=== PATIENT | male | born 1970 | race Two or more races ===

== ENCOUNTER 2018-04-05 10:05 | Inpatient (IN) | payer OTHER ==
[~2018-04-05] VITALS: Ht 165.1 cm; Wt 125.0 kg
--- NOTE | 2018-04-05 10:16 | NUR ---
CHARBEL ROTHMAN NOTIFIED OF PT BP [id number]/141
--- NOTE | 2018-04-05 10:29 | NUR ---
PT TO ROOM FROM LOBBY AT THIS TIME.
[2018-04-05] MEDS ORDERED: ONDANSETRON ODT 4 MG PO ONE (10:30)
[2018-04-05] MEDS ORDERED: ONDANSETRON ODT 4 MG ONE (10:32)
--- NOTE | 2018-04-05 10:37 | NUR ---
MD IS AT THE BEDSIDE TO ASSESS
[2018-04-05 11:01] LABS: BASOPHILS # (AUTO) 0.05 x10^3/uL (0-0.1); BASOPHILS % (AUTO) 1 % (0-1); EOSINOPHILS # (AUTO) 0.06 x10^3/uL (0-0.4); EOSINOPHILS % (AUTO) 1 % (1-7); LYMPHOCYTES # (AUTO) 1.85 x10^3/uL (1-3.4); LYMPHOCYTES % (AUTO) 26 % (22-44); MD NO; MEAN CORPUSCULAR HEMOGLOBIN 30.1 pg (27.5-34.5); MEAN CORPUSCULAR HGB CONC 32.9 g/dL (33.2-36.2); MEAN CORPUSCULAR VOLUME 91.5 fL (81-97); MEAN PLATELET VOLUME 9.7 fL (7.4-10.4); MONOCYTES # (AUTO) 0.42 x10^3/uL (0.2-0.8); MONOCYTES % (AUTO) 6 % (2-9); NEUTROPHILS # (AUTO) 4.68 x10^3/uL (1.8-6.8); NEUTROPHILS % (AUTO) 66 % (42-75); PLATELET COUNT 197 x10^3/uL (130-400); RED BLOOD COUNT 5.73 x10^6/uL (4.38-5.82); RED CELL DISTRIBUTION WIDTH 16.2 % (9.4-14.8)
--- NOTE | 2018-04-05 11:03 | NUR ---
pt ambulated mto the restroom with a steady gait
--- NOTE | 2018-04-05 11:07 | NUR ---
pt to ultrasound w tech
[2018-04-05 11:10] LABS: ANION GAP 6 mmol/L (5-15); CALCIUM 8.6 mg/dL (8.5-10.1); CHLORIDE 110 mmol/L (98-107)
[2018-04-05 11:16] LABS: ALANINE AMINOTRANSFERASE 80 U/L (12-78); ALKALINE PHOSPHATASE 77 U/L (45-117); BILIRUBIN,TOTAL 1.4 mg/dL (0.2-1.0); CREATININE 1.48 mg/dL (0.7-1.3); TOTAL PROTEIN 6.9 g/dL (6.4-8.2); TROPONIN I < 0.015 ng/mL (0.000-0.045)
[2018-04-05 11:24] LABS: MICROSCOPIC INDICATED
[2018-04-05 11:43] LABS: CULTURE INDICATED? NO
--- NOTE | 2018-04-05 12:51 | NUR ---
PT TO CT W TECH
--- NOTE | 2018-04-05 13:03 | NUR ---
PT REPORT FROM JAROD SOLIS. PT CARE TO BE ASSUMED.
--- NOTE | 2018-04-05 13:03 | NUR ---
afshin (rn) is assuming careof this pt at this time. sbar report was exchanged at the bedside.
[2018-04-05] MEDS ORDERED: OMNIPAQUE 350 MG/ML, 150 ML BOTTLE ONE (13:11)
--- NOTE | 2018-04-05 13:30 | NUR ---
PT RESTING QUIETLY ON BED. PT'S FRIEND, MIKE LEWIS TRANSLATING FOR PT.
--- NOTE | 2018-04-05 14:40 | NUR ---
RESTING QUIETLY ON BED, WATCHING TV. FRIEND IN ROOM.
[2018-04-05] MEDS ORDERED: FUROSEMIDE 40 MG/4 ML IVPush ONE (15:00)
[2018-04-05] MEDS ORDERED: NITROGLYCERIN OINT 2%, 1GM TP ONE ×2 (15:00→16:42)
[2018-04-05] MEDS ORDERED: ONDANSETRON 2MG/ML, 2ML IVPush PRN (15:30)
[2018-04-05] MEDS ORDERED: DOCUSATE 100 MG CAPSULE PO PRN (15:30)
[2018-04-05] MEDS ORDERED: ONDANSETRON ODT 4 MG PO PRN (15:30)
[2018-04-05 15:39] LABS: FREE T4 (FREE THYROXINE) 1.09 ng/dL (0.76-1.46); THYROID STIMULATING HORMONE 2.08 mIU/L (0.358-3.740)
[2018-04-05 15:44] LABS: HEMOGLOBIN A1C 5.7 % (4.2-6.3)
[2018-04-05] MEDS ORDERED: HEPARIN 5,000 UNITS/ML, 1ML ONE (16:42)
[2018-04-05] MEDS ORDERED: FUROSEMIDE 40 MG/4 ML ONE (16:42)
--- NOTE | 2018-04-05 16:50 | NUR ---
PT SITTING ON CHAIR IN ED ROOM, FULLY DRESSED. PT NOTIFIED OF PENDING ADMISSION. BLAISE ELECTRICAL MANAGER IN ROOM FOR TRANSLATION ASSISTANCE. PT INFORMED OF ORDERED MEDS; UNDERSTANDING VERBALIZED.
[2018-04-05] MEDS: HEPARIN 5,000 UNITS/ML, 1ML SQ SCH (17:08)
[2018-04-05] MEDS ORDERED: ANTIBIOTIC (17:10)
[2018-04-05] MEDS ORDERED: RANITIDINE (17:10)
[2018-04-05] MEDS ORDERED: HTN (17:10)
--- NOTE | 2018-04-05 17:25 | NUR ---
HOSPITALIST BS FOR EXAM, W/ [employer]ER ASSIST
[2018-04-05] MEDS ORDERED: FUROSEMIDE 40 MG/4 ML IV ONE (17:30)
[2018-04-05 17:35] LABS: INTERNATIONAL NORMALIZED RATIO 1.17 (0.93-1.1); PROTHROMBIN TIME 12.3 Seconds (9.6-11.5)
--- NOTE | 2018-04-05 17:39 | NUR ---
CALLED FLOOR TO GIVE REPORT TO JAROD GORDON. RN NOT AVAILABLE. ON HOLD FOR 10 MINS; ENDED CALL.
--- NOTE | 2018-04-05 18:01 | NUR ---
PT REPORT TO JAROD GORDON FOR ROOM 508. TWO ORDERS IN [facility] FOR HYDRALAZINE (PO NOW VS IV PRN) WILL ATTEMPT TO CLARIFY ORDER PRIOR TO SENDING PT TO FLOOR.
[2018-04-05] MEDS ORDERED: hydrALAzine 20 MG/ML, 1ML ONE (18:06)
[2018-04-05] MEDS: hydrALAzine 20 MG/ML, 1ML IVPush PRN (18:09)
--- NOTE | 2018-04-05 18:10 | NUR ---
CONSULTED DR FOSTER RE HYDRALAZINE ORDER. VO TO GIVE IV DOSE. DOSE GIVEN PER [facility] ORDER.
[2018-04-05 20:12] LABS: AMPHETAMINE SCREEN, URINE Negative (Negative); BARBITURATE SCREEN, URINE Negative (Negative); BENZODIAZEPINE SCREEN, URINE Negative (Negative); CANNABINOID SCREEN, URINE Negative (Negative); COCAINE SCREEN, URINE Negative (Negative); METHADONE SCREEN, URINE Negative (Negative); OPIATE SCREEN, URINE Negative (Negative)
[2018-04-05 20:40] VITALS: BP 119/78
[2018-04-05] MEDS: LISINOPRIL 20 MG TABLET PO SCH ×2 (21:00→21:57)
[2018-04-05 21:35] VITALS: BP 152/89
[2018-04-05] MEDS ORDERED: LOSA100T14 PO (22:04)
[2018-04-05] MEDS ORDERED: SULF1TAB23 PO (22:04)
[2018-04-05] MEDS ORDERED: ATEN100T PO (22:04)
[2018-04-06] MEDS: HEPARIN 5,000 UNITS/ML, 1ML SQ SCH ×3 (00:27→17:46)
[2018-04-06 00:30] VITALS: BP 139/84
[2018-04-06 04:59] LABS: BASOPHILS # (AUTO) 0.05 x10^3/uL (0-0.1); BASOPHILS % (AUTO) 1 % (0-1); EOSINOPHILS % (AUTO) 1 % (1-7); LYMPHOCYTES # (AUTO) 1.74 x10^3/uL (1-3.4); LYMPHOCYTES % (AUTO) 23 % (22-44); MD NO; MEAN CORPUSCULAR HEMOGLOBIN 30.9 pg (27.5-34.5); MEAN CORPUSCULAR HGB CONC 33.3 g/dL (33.2-36.2); MEAN CORPUSCULAR VOLUME 92.7 fL (81-97); MEAN PLATELET VOLUME 9.6 fL (7.4-10.4); MONOCYTES # (AUTO) 0.48 x10^3/uL (0.2-0.8); MONOCYTES % (AUTO) 6 % (2-9); NEUTROPHILS # (AUTO) 5.17 x10^3/uL (1.8-6.8); NEUTROPHILS % (AUTO) 69 % (42-75); PLATELET COUNT 183 x10^3/uL (130-400); RED BLOOD COUNT 5.48 x10^6/uL (4.38-5.82); RED CELL DISTRIBUTION WIDTH 17.3 % (9.4-14.8)
[2018-04-06 05:04] LABS: CHLORIDE 106 mmol/L (98-107)
[2018-04-06 05:11] LABS: ALANINE AMINOTRANSFERASE 71 U/L (12-78); ALBUMIN 3.1 g/dL (3.4-5.0); ALKALINE PHOSPHATASE 74 U/L (45-117); ANION GAP 6 mmol/L (5-15); BILIRUBIN,TOTAL 0.8 mg/dL (0.2-1.0); CALCIUM 8.6 mg/dL (8.5-10.1); CHOL/HDL RATIO 4.4; CHOLESTEROL, TOTAL 164 mg/dL (140-239); CREATININE 1.42 mg/dL (0.7-1.3); HDL CHOL % 23 % (26-37); HDL CHOLESTEROL (DIRECT) 37 mg/dL (40-60); LDL CHOLESTEROL,CALCULATED 106 mg/dL (54-169); LDL/HDL RATIO 2.9 (0.5-3.0); TRIGLYCERIDES 103 mg/dL (50-200); VLDL CHOLESTEROL 21 mg/dL (0-25)
[2018-04-06 07:40] VITALS: BP 146/78
[2018-04-06] MEDS: LISINOPRIL 20 MG TABLET PO SCH ×2 (08:30→20:22)
[2018-04-06] MEDS ORDERED: MAGNESIUM SULFATE PMX 2GM/50ML 50 ML IV ONE (12:30)
[2018-04-06 13:56] VITALS: BP_SYST 135; BP_SYST 155; BP_DIAS 89
[2018-04-06 15:06] VITALS: BP 138/83
[2018-04-06] MEDS ORDERED: ALBUTEROL/IPRATROPIUM 2.5MG/0.5MG, 3 ML NPPB PRN (18:30)
[2018-04-06 18:35] VITALS: BP 158/87
[2018-04-07 00:33] VITALS: BP_SYST 164; BP_SYST 171; BP_DIAS 101; BP_DIAS 113
[2018-04-07] MEDS: hydrALAzine 20 MG/ML, 1ML IVPush PRN (01:15)
[2018-04-07] MEDS: HEPARIN 5,000 UNITS/ML, 1ML SQ SCH ×3 (01:15→16:48)
[2018-04-07 02:11] VITALS: BP 154/90
[2018-04-07 06:37] VITALS: BP 169/99
[2018-04-07 08:30] LABS: ANION GAP 7 mmol/L (5-15); CALCIUM 8.7 mg/dL (8.5-10.1); CHLORIDE 108 mmol/L (98-107); CREATININE 1.01 mg/dL (0.7-1.3)
[2018-04-07] MEDS: LISINOPRIL 20 MG TABLET PO SCH ×2 (09:05→19:57)
[2018-04-07] MEDS: CHLORTHALIDONE 25 MG TABLET PO SCH (09:05)
[2018-04-07] MEDS: CARVEDILOL 6.25 MG TABLET PO SCH ×2 (11:03→19:58)
[2018-04-07] MEDS ORDERED: OMNIPAQUE 350 MG/ML, 100ML BOTTLE ONE (11:15)
[2018-04-07 12:09] VITALS: BP 161/102
[2018-04-07] MEDS ORDERED: FUROSEMIDE 40 MG/4 ML IV STA (12:40)
[2018-04-07 19:04] VITALS: BP 174/100
[2018-04-07 21:19] VITALS: BP 181/125
[2018-04-07] MEDS ORDERED: ENALAPRILAT 1.25 MG/ML, 2ML IV ONE (22:00)
[2018-04-08] MEDS ORDERED: LABETALOL 5MG/ML, 20ML IVPush PRN (00:15)
[2018-04-08 00:25] VITALS: BP 159/95
[2018-04-08] MEDS ORDERED: FUROSEMIDE 20 MG/2 ML IV ONE ×2 (01:00→12:00)
[2018-04-08] MEDS: HEPARIN 5,000 UNITS/ML, 1ML SQ SCH ×3 (01:25→17:00)
[2018-04-08 05:38] VITALS: BP 163/94
[2018-04-08] MEDS: CARVEDILOL 6.25 MG TABLET PO SCH (05:42)
[2018-04-08 08:12] VITALS: BP 159/118
[2018-04-08] MEDS: CHLORTHALIDONE 25 MG TABLET PO SCH (08:56)
[2018-04-08] MEDS: LISINOPRIL 20 MG TABLET PO SCH (08:57)
[2018-04-08] MEDS ORDERED: DOXAZOSIN 2MG TABLET PO SCH (09:00)
[2018-04-08 11:54] VITALS: BP 128/84
[2018-04-08] MEDS ORDERED: FUROSEMIDE 20 MG/2 ML ONE (11:59)
[2018-04-08 13:34] VITALS: BP 117/76
[2018-04-08 14:26] LABS: O2 FLOW ROOM AIR L/min
[2018-04-08 17:17] LABS: O2 FLOW ROOM AIR L/min
[2018-04-08] MEDS ORDERED: DOXA2TAB9 PO (17:32)
[2018-04-08] MEDS ORDERED: DOCU-131 PO (17:32)
[2018-04-08] MEDS ORDERED: HYDR-3343 PO (17:32)
[2018-04-08] MEDS ORDERED: CARV12.543 PO (17:32)
[2018-04-08] MEDS ORDERED: CHLO25TA PO (17:32)
[2018-04-08] MEDS ORDERED: LISI-170 PO (17:32)
[2018-04-08] MEDS ORDERED: CARVEDILOL 12.5 MG TABLET PO SCH (18:00)
[2018-04-08] MEDS ORDERED: SIMETHICONE 80 MG CHEW TAB PO PRN (18:30)
== END 2018-04-08 18:56 | disposition home or self-care (01) | DRG 291 ==
LOC: ED 14:09 → EDIP 14:54 → 5SO 18:40
PROVIDERS: ADMIT Internal Medicine; ATTEND Internal Medicine
DX: I11.0 Hypertensive heart disease with heart failure (principal); N17.0 Acute kidney failure with tubular necrosis; R18.8 Other ascites; N39.0 Urinary tract infection, site not specified; Z68.42 Body mass index [BMI] 45.0-49.9, adult; I42.6 Alcoholic cardiomyopathy; E66.01 Morbid (severe) obesity due to excess calories; I16.0 Hypertensive urgency; K21.9 Gastro-esophageal reflux disease without esophagitis; N40.0 Benign prostatic hyperplasia without lower urinary tract symptoms; I50.811 Acute right heart failure; K76.1 Chronic passive congestion of liver; R09.02 Hypoxemia; K70.9 Alcoholic liver disease, unspecified
CPT/HCPCS: 36415; 36600; 71045; 71046; 71275; 74177; 76700; 78582; 80048; 80053; 80061; 80307; 81001; 82800; 82803; 83036; 83605; 83690; 83735; 83880; 84100; 84439; 84443; 84484; 85025; 85379; 85610; 90656; 93005; 93306; 96374; G0378; J1644; J1940; Q0162; Q9967; A9540; A9558; C9898; J0360; J3475

== ENCOUNTER → 2020-06-23 | Outpatient (CLI) | payer MEDICAID, OTHER ==
[~2020-06-23] MED LIST: ANTIBIOTIC; ATEN100T PO; CARV12.543 PO; CHLO25TA PO; DOCU-131 PO; DOXA2TAB9 PO; HTN; HYDR-3343 PO; LISI-170 PO; LOSA100T14 PO; RANITIDINE; SULF1TAB23 PO
== END | disposition home or self-care (01) ==
LOC: CVU 07:21
PROVIDERS: ATTEND Internal Medicine Cardiovascular Disease
DX: I11.0 Hypertensive heart disease with heart failure (principal); I12.9 Hypertensive chronic kidney disease with stage 1 through stage 4 chronic kidney disease, or unspecified chronic kidney disease; I50.31 Acute diastolic (congestive) heart failure; Z87.891 Personal history of nicotine dependence
CPT/HCPCS: 93306; 93356